=== PATIENT | female | born 1965 | race Caucasian/White ===

== ENCOUNTER → 2023-08-09 | Outpatient (CLI) | payer BC | END | disposition home or self-care (01) | LOC: RAH 15:00 | PROVIDERS: ATTEND Nurse Practitioner Family | DX: R30.0 Dysuria (principal); R10.9 Unspecified abdominal pain | CPT/HCPCS: 76770 ==

== ENCOUNTER 2024-01-04 17:14 | Observation (INO) | payer BC ==
[~2024-01-04] VITALS: Ht 162.6 cm; Wt 82.6 kg
[2024-01-04 17:49] LABS: HEMATOCRIT 44.8 % (36-48); MEAN CORPUSCULAR HGB CONC 32.6 g/dL (32.0-36.0); RED BLOOD CELL COUNT(AUTO) 4.87 MIL/uL (4.00-5.50); WHITE BLOOD COUNT (AUTO) 8.5 K/uL (4.8-10.8)
[2024-01-04 18:00] LABS: INR <= 0.93 (0.85-1.15); PROTHROMBIN TIME 10.7 SEC (9.6-11.6)
[2024-01-04 18:01] LABS: PARTIAL THROMBOPLASTIN TIME 29.8 SEC (26.3-35.5)
[2024-01-04 18:10] LABS: CREATININE 1.3 mg/dL (0.5-1.5); POTASSIUM 3.3 mmol/L (3.5-5.1)
[2024-01-04 18:24] LABS: ALBUMIN 4.3 g/dL (3.5-5.0); BILIRUBIN,TOTAL 0.4 mg/dL (0.2-1.0); TOTAL PROTEIN, SERUM 8.2 g/dL (6.0-8.3)
[2024-01-04] MEDS: NITROGLYCERIN 1GM OINT 1 INCH/1GM TD ONE (22:11)
[2024-01-04] MEDS: ASPIRIN 325MG EC TAB PO ONE (22:11)
[2024-01-05] MEDS ORDERED: POTASSIUM CHLORIDE 10% ELIXIR 20 MEQ/15 ML UDCUP PO PRN
[2024-01-05] MEDS ORDERED: ONDANSETRON 4MG INJ IV PRN
[2024-01-05] MEDS ORDERED: NITROGLYCERIN 0.4 MG SL TAB SL PRN
[2024-01-05] MEDS ORDERED: DEXTROSE 50%-WATER 50 ML DISP.SYRIN IV PRN
[2024-01-05] MEDS ORDERED: MAGNESIUM 2GM PREMIX 50ML 50 ML IV PRN
[2024-01-05] MEDS ORDERED: GLUCAGON 1MG KIT 1 MG ML IM PRN
[2024-01-05 01:26] VITALS: BP 117/74; PULSE 73; RESP 18
[2024-01-05 01:39] LABS: BASOPHILS # (AUTO) 0.08 K/uL (0.00-0.20); BASOPHILS % (AUTO) 0.9 % (0.0-5.0); EOSINOPHILS # (AUTO) 0.57 K/uL (0.00-0.70); EOSINOPHILS % (AUTO) 6.2 % (0.0-8.0); IMMATURE GRANULOCYTE ABSOLUTE 0.02 K/uL (0-1); LYMPHOCYTES % (AUTO) 32.8 % (21.0-51.0); MEAN CORPUSCULAR HEMOGLOBIN 30.2 pg (27.0-33.0); MEAN CORPUSCULAR HGB CONC 32.6 g/dL (32.0-36.0); MEAN CORPUSCULAR VOLUME 92.9 fL (79-99); MONOCYTES # (AUTO) 0.5 K/uL (0.1-1.0); MONOCYTES % (AUTO) 5.6 % (3.0-13.0); NEUTROPHILS % (AUTO) 54.3 % (40.0-77.0); PLATELET COUNT (AUTO) 287 K/uL (130-400); RED CELL DISTRIBUTION WIDTH 13.2 % (11.0-15.5); WHITE BLOOD COUNT (AUTO) 9.2 K/uL (4.8-10.8)
[2024-01-05] MEDS ORDERED: FLUO20CA36 PO (01:51)
[2024-01-05] MEDS ORDERED: LEVO88TA7 PO (01:51)
[2024-01-05] MEDS ORDERED: OLME-7 PO (01:51)
[2024-01-05] MEDS ORDERED: ATOR20TA65 PO (01:51)
[2024-01-05] MEDS ORDERED: TOPI25TA48 PO (01:51)
[2024-01-05] MEDS ORDERED: BUSP5TAB3 PO (01:51)
[2024-01-05 02:06] LABS: ALBUMIN 3.9 g/dL (3.5-5.0); BILIRUBIN,TOTAL 0.4 mg/dL (0.2-1.0); CREATININE 1.3 mg/dL (0.5-1.5); MAGNESIUM 1.9 mg/dL (1.80-2.40); TOTAL PROTEIN, SERUM 7.3 g/dL (6.0-8.3)
[2024-01-05 02:10] LABS: HEMOGLOBIN A1C 5.9 % (4.0-6.0)
[2024-01-05] MEDS: POTASSIUM CHLORIDE 20MEQ/100ML 100 ML IV PRN (02:12)
[2024-01-05] MEDS: KCL 20 MEQ ERTAB PO PRN (02:13)
[2024-01-05 04:00] VITALS: BP 110/66; PULSE 54; RESP 20
[2024-01-05] MEDS: INSULIN HUMULIN R 100 UNIT/ML 3ML SQ SCH (05:27)
[2024-01-05 08:00] VITALS: BP 98/55; PULSE 71; RESP 18; O2SAT 97
[2024-01-05] MEDS: FAMOTIDINE 20MG TAB PO SCH (09:10)
[2024-01-05] MEDS: ASPIRIN 81 MG EC TAB PO SCH (09:10)
[2024-01-05] MEDS: ENOXAPARIN SODIUM 30 MG/0.3 ML SQ SCH (09:10)
[2024-01-05] MEDS ORDERED: METOPROLOL TARTRATE 1 MG/ML 5ML VIAL IV ONE (11:07)
[2024-01-05 14:12] LABS: CREATININE 1.2 mg/dL (0.5-1.5); POTASSIUM 4.2 mmol/L (3.5-5.1)
[2024-01-05 16:00] VITALS: BP 109/69; PULSE 64; RESP 18
[2024-01-05] MEDS ORDERED: LISI20TA24 PO (17:46)
== END 2024-01-05 18:30 | disposition home or self-care (01) ==
LOC: EDH 17:14 → EDHIP 23:46 → 4DH 01-05 00:11
PROVIDERS: ADMIT Hospitalist; ATTEND Hospitalist
DX: I10 Essential (primary) hypertension (principal); E78.5 Hyperlipidemia, unspecified; R07.89 Other chest pain; E66.9 Obesity, unspecified; E87.6 Hypokalemia; E83.42 Hypomagnesemia; E78.1 Pure hyperglyceridemia; E03.9 Hypothyroidism, unspecified; I20.9 Angina pectoris, unspecified; Z68.31 Body mass index [BMI] 31.0-31.9, adult; Z79.82 Long term (current) use of aspirin; Z86.2 Personal history of diseases of the blood and blood-forming organs and certain disorders involving the immune mechanism; Z96.651 Presence of right artificial knee joint
CPT/HCPCS: 36415; 71045; 75574; 80048; 80053; 80061; 82948; 83036; 83735; 84443; 84484; 85025; 85027; 85610; 85730; 93005; 93306; 96365; 96366; 96372; G0378; J1650; J3480; J3490